=== PATIENT | female | born 1960 | race Caucasian/White ===

== ENCOUNTER 2016-11-23 11:22 | Emergency (ER) | payer BC ==
[2016-11-23] MEDS ORDERED: 0.9 % SODIUM CHLORIDE 1,000 ML BAG IV ONE (11:58)
[2016-11-23] MEDS ORDERED: PROMETHAZINE HCL 25 MG/ML VIAL IVP ONE (11:58)
[2016-11-23 12:24] LABS: BASO % 0.4 % (0-6); EOS % 3.6 % (0-6); HEMATOCRIT 40.3 % (35.0-47.0); LYMPH % 29.1 % (16-45); MEAN CORPUSCULAR HEMOGLOBIN 29.7 pg (27-33); MEAN CORPUSCULAR HGB CONC 32.3 g/dl (32-36); MEAN PLATELET VOLUME 8.9 fl (7.4-10.4); MONO % 13.9 % (0-9); PLATELET COUNT 270 K/uL (130-400); RED BLOOD COUNT 4.38 M/uL (3.80-5.40); RED CELL DISTRIBUTION WIDTH 14.4 % (11.5-14.5)
[2016-11-23 12:36] LABS: BLOOD UREA NITROGEN 18 mg/dL (7-17); CREATININE 0.8 mg/dL (0.52-1.04); EST GLOMERULAR FILTRATION RATE > 60 ml/min; GLUCOSE,RANDOM 97 mg/dL (70-110)
[2016-11-23 13:06] LABS: THYROID STIMULATING HORMONE < 0.02 uIU/ml (0.465-4.68)
--- NOTE | 2016-11-23 13:06 | Emergency Department Record ---
History of Present Illness - General Chief Complaint: Headache Migraine Stated Complaint: FEELS FOGGY Time Seen by Provider: 11/23/16 11:47 Source: Patient Mode of Arrival: Ambulatory Limitations: No limitations - History of Present Illness Initial Comments: pt has been having a headache for 3 days waxing and waning and also feeling lightheaded and off balance. pt has a hx of migraines but this is different. MD Complaint: Headache Onset/Timin -: Days(s) Location: Occipital, Retro-orbital Severity: Moderate Severity scale (1-10): 6 Improves With: Immobilization Associated Symptoms: Photophobia, Tingling/numbness, Weakness Treatments Prior to Arrival: None - Symptoms of Stroke Symptoms of stroke: Dizziness, Vertigo - Related Data Home Medications Medication Instructions Recorded Confirmed Last Taken Amitriptyline HCl 100 mg PO QHS 11/23/16 11/23/16 11/22/16 Gabapentin [Neurontin] 300 mg PO DAILY 11/23/16 11/23/16 11/23/16 Levothyroxine Sodium [Synthroid] 300 mcg PO DAILY 11/23/16 11/23/16 11/23/16 Allergies Allergy/AdvReac Type Severity Reaction Status Date / Time Estrogens Allergy MIGRAINES Verified 02/02/16 18:17 codeine phosphate AdvReac NAUSEA AND Verified 02/02/16 18:17 [From Tylenol-Codeine #3] VOMITING Travel Screening - Travel/Exposure Within Last 30 Days Have you traveled within the last 30 days?: No - Travel/Exposure Within Last Year Have you traveled outside the [place] in the last year?: No - Additonal Travel Details Have you been exposed to anyone with a communicable illness?: No - Travel Symptoms Symptom Screening: None Past Medical History - SOCIAL HISTORY Smoking Status: Never smoker Alcohol Use: None Drug Use: None - RESPIRATORY Hx Respiratory Disorders: No - CARDIOVASCULAR Hx Cardio Disorders: No - NEURO Hx Neuro Disorders: Yes Hx CVA: Yes (at age 19) Hx Headaches: Yes Hx of Migraines: Yes (once every 2 months) - GI Hx GI Disorders: Yes Hx Ulcer: Yes - Hx Genitourinary Disorders: Yes Hx Bladder Problem: Yes (occass incontience) Hx UTI: Yes Comment:: post deepak 2 years ago - ENDOCRINE Hx Endocrine Disorders: Yes Hx Diabetes: No Hx Thyroid Disease: Yes ([place]) - MUSCULOSKELETAL Hx Musculoskeletal Disorders: Yes Hx Back Injury: Yes (fractured lower back) - PSYCH Hx Psych Problems: Yes Hx Anxiety: Yes Hx Depression: Yes - HEMATOLOGY/ONCOLOGY Hx Hematology/Oncology Disorders: No Family Medical History Any Significant Family History?: No Physical Exam - General General Appearance: Alert, Oriented x3, Cooperative, Mild distress - Head Head exam: Normal inspection - Eye Eye exam: Normal appearance, PERRL, EOMI Pupils: Normal accommodation - ENT ENT exam: Normal exam, Mucous membranes moist, Normal external ear exam, Normal orophraynx, TM's normal bilaterally Ear exam: Normal external inspection. negative: External canal tenderness Nasal Exam: Normal inspection. negative: Discharge, Sinus tenderness Mouth exam: Normal external inspection, Tongue normal Teeth exam: Normal inspection. negative: Dental caries Throat exam: Normal inspection. negative: Tonsillar erythema, Tonsillar exudate - Neck Neck exam: Normal inspection, Full ROM. negative: Tenderness - Respiratory Respiratory exam: Normal lung sounds bilaterally. negative: Respiratory distress - Cardiovascular Cardiovascular Exam: Regular rate, Normal rhythm, Normal heart sounds - GI/Abdominal GI/Abdominal exam: Soft, Normal bowel sounds. negative: Tenderness - Rectal Rectal exam: Deferred - exam: Deferred - Extremities Extremities exam: Normal inspection, Full ROM, Normal capillary refill. negative: Tenderness - Back Back exam: Reports: Normal inspection, Full ROM. Denies: Muscle spasm, Rash noted, Tenderness - Neurological Neurological exam: Alert, CN II-XII intact, Normal gait, Oriented X3 - Psychiatric Psychiatric exam: Normal affect, Normal mood - Skin Skin exam: Dry, Intact, Normal color, Warm Course Vital Signs 11/23/16 11:23 Temperature 97.7 F Pulse Rate 92 H Respiratory 16 Rate Blood Pressure 129/86 Pulse Ox 99 - Reevaluation(s) Reevaluation #1: 11/23/16 15:30 pt states her headache is more like a migraine now. Reevaluation #2: 11/23/16 15:37 d/w dr rito [email or web address]-jitendra Medical Decision Making - Lab Data Result diagrams: 11/23/16 12:15 11/23/16 12:15 Lab Results 11/23/16 11/23/16 Range/Units 12:15 12:15 WBC 5.0 (4.2-12.2) K/uL RBC 4.38 (3.80-5.40) M/uL Hgb 13.0 (11.6-16.0) gm/dl Hct 40.3 (35.0-47.0) % MCV 92.0 (81-97) fl MCH 29.7 (27-33) pg MCHC 32.3 (32-36) g/dl RDW 14.4 (11.5-14.5) % Plt Count 270 (130-400) K/uL MPV 8.9 (7.4-10.4) fl Gran % 53.0 (47-80) % Lymphocytes % 29.1 (16-45) % Monocytes % 13.9 H (0-9) % Eosinophils % 3.6 (0-6) % Basophils % 0.4 (0-6) % Sodium 141 (136-145) mmol/L Potassium 4.0 (3.5-5.1) mmol/L Chloride 105 (98-107) mmol/L Carbon Dioxide 29.0 (22-30) mmol/L Anion Gap 7.0 (7-16) BUN 18 H (7-17) mg/dL Creatinine 0.8 (0.52-1.04) mg/dL Estimated GFR > 60 ml/min Random Glucose 97 (70-110) mg/dL Calcium 9.6 (8.5-10.1) mg/dL Disposition Disposition: Discharge Clinical Impression: Hyperthyroidism Migraine Qualifiers: Migraine type: with aura Status migrainosus presence: without status migrainosus Intractability: not intractable Qualified Code(s): G43.109 - Migraine with aura, not intractable, without status migrainosus Disposition: Home, Self-Care Condition: (1) Good Instructions: Migraine Headache (ED) Additional Instructions: follow up with family doctor, fire prevention officer, and neurologist. return sooner if worse Forms: Patient Portal Access
[2016-11-23 13:24] LABS: ERYTHROCYTE SEDIMENTATION RATE 7 mm/hr (0-30)
[2016-11-23 14:14] LABS: T3 UPTAKE 44.2 % (23.5-40.5); THYROXINE (T4) 18.8 ug/dl (5.53-11.0)
[2016-11-23] MEDS ORDERED: HYDROMORPHONE HCL 1 MG/ML CPJ IVP ONE (15:28)
== END 2016-11-23 16:15 | disposition home or self-care (01) ==
LOC: ER 11:22
DX: G43.109 Migraine with aura, not intractable, without status migrainosus (principal); E05.90 Thyrotoxicosis, unspecified without thyrotoxic crisis or storm; H53.149 Visual discomfort, unspecified; R20.0 Anesthesia of skin; R53.1 Weakness
CPT/HCPCS: 99284 ×2; 96374; 96375; 85025; 85651; 80048; 84443; 84479; 84436; 70450; J1170; J2550; J7030